=== PATIENT | female | born 2000 | race Hispanic/Latino ===

== ENCOUNTER 2024-11-16 18:46 | Emergency (ER) | payer OTHER ==
[~2024-11-16] VITALS: Ht 165.1 cm; Wt 114.8 kg
[2024-11-16 22:04] VITALS: PULSE 100; RESP 20; TEMP 99.3
[2024-11-16 23:48] VITALS: BP 124/82; PULSE 100; RESP 20; TEMP 99.3; O2SAT 100
== END 2024-11-16 23:00 | disposition home or self-care (01) ==
LOC: ER 22:14
DX: Z48.01 Encounter for change or removal of surgical wound dressing (principal)
CPT/HCPCS: 99282